=== PATIENT | male | born 1990 | race African-American/Black ===

== ENCOUNTER 2025-08-29 09:19 | Emergency (ER) | payer MEDICAID, OTHER ==
[~2025-08-29] VITALS: Ht 188 cm; Wt 164.5 kg
[2025-08-29 09:27] VITALS: BP 162/104; PULSE 76; RESP 18; TEMP 97.8; O2SAT 97
--- NOTE | 2025-08-29 10:22 | ED.PDOC ---
HPI (NEURO) HPI Comments 35 year-old male presents to the ED with a chief complaint of R facial numbness for X1 week. Patient reports a Hx of Trigeminal Neuropathy as of January 2025. Patient reports taking Gabapentin 300mg daily, with no relief. Patient has no further complaints at this time and otherwise denies symptoms of weakness, dizziness, chest pain, headache, or N/V/D. Chief Complaint: Face pain Time Seen by MD: 10:15 Reviewed Notes: Medications, Allergies Information Source: Patient Mode of Arrival: Ambulatory Severity: Moderate Timing: Weeks Duration: Since onset Weakness Location: (R) Sided, Facial Associated Signs and Symptoms: Numbness Past Medical History PAST MEDICAL HISTORY: Anxiety, HTN Past Medical History (Other): Trigeminal Neuralgia Surgical History: Denies all surgeries Surgical History (Other): Lumbar Puncture Family History Family History: Unknown Social History Smoker: Non-Smoker Alcohol: Denies ETOH Use Drugs: Denies Drug Use Lives In: Home Constitutional: denies: chills, diaphoresis, fatigue, fever, malaise, sweats, weakness, others EENTM: denies: blurred vision, double vision, ear bleeding, ear discharge, ear drainage, ear pain, ear ringing, eye pain, eye redness, hearing loss, mouth pain, mouth swelling, nasal discharge, nose bleeding, nose congestion, nose pain, photophobia, tearing, throat pain, throat swelling, voice changes, others Respiratory: denies: cough, hemoptysis, orthopnea, SOB at rest, shortness of breath, SOB with excertion, stridor, wheezing, others Cardiovascular: denies: chest pain, dizzy spells, diaphoresis, Dyspnea on exertion, edema, irregular heart beat, left arm pain, lightheadedness, palpitations, PND, syncope, others Gastrointestinal: denies: abdomen distended, abdominal pain, blood streaked bowels, constipated, diarrhea, dysphagia, difficulty swallowing, hematemesis, melena, nausea, poor appetite, poor fluid intake, rectal bleeding, rectal pain, vomiting, others Genitourinary: denies: burning, dysuria, flank pain, frequency, hematuria, incontinence, penile discharge, penile sore, pain, testicle pain, testicle swelling, urgency, others Neurological: reports: numbness (R sided facial ); denies: dizziness, fainting, headache, left sided numbness, left sided weakness, paresthesia, pre-existing deficit, right sided numbness, right sided weakness, seizure, speech problems, tingling, tremors, weakness, others Musculoskeletal: denies: back pain, gout, joint pain, joint swelling, muscle pain, muscle stiffness, neck pain, others Integumetry: denies: bruises, change in color, change in hair/nails, dryness, laceration, lesions, lumps, rash, wounds, others Allergic/Immunocompromised: denies: Difficulty Healing, Frequent Infections, Hives, Itching, others Hematologic/Lymphatic: denies: anemia, blood clots, easy bleeding, easy bruising, swollen glands, others Endocrine: denies: excessive hunger, excessive sweating, excessive thirst, excessive urination, flushing, intolerance to cold, intolerance to heat, unexplained weight gain, unexplained weight loss, others Psychiatric: denies: anxiety, bipolar disorder, depression, hopeless, panic disorder, schizophrenia, sleepless, suicidal, others All Other Systems: Reviewed and Negative Physical Exam General Appearance: Moderate Distress, Obese HEENT: Normal ENT Inspection, PERRL/EOMI, Pharynx Normal, TMs Normal, Other (Facial pain neuralgia) Neck: Full Range of Motion, Non-Tender, Normal, Normal Inspection Respiratory: Chest Non-Tender, Lungs Clear, No Accessory Muscle Use, No Respiratory Distress, Normal Breath Sounds Cardiovascular: No Edema, No JVD, No Murmur, No Gallop, Normal Peripheral Pulses, Regular Rate/Rhythm Breast Exam: Deferred Gastrointestinal: No Organomegaly, Non Tender, No Pulsatile Mass, Normal Bowel Sounds, Soft Genitalia: Deferred Pelvic: Deferred Rectal: Deferred Extremities: No calf tenderness, Normal capillary refill, Normal inspection, Normal range of motion, Non-tender, No pedal edema Neurologic: Alert, 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 Was a procedure done?: No Differential Diagnosis (SZ) Seizure: N/A CVA: Armas's Palsy General Weakness: Other (Trigeminal Neuropathy) Headache: Migraine, Sinusitis X-Ray, Labs, Meds, VS Vital Signs Date Time Temp Pulse Resp B/P (MAP) Pulse Ox O2 Delivery O2 Flow Rate FiO2 08/29/25 09:27 97.8 76 18 162/104 97 97.8 Current Medications Medications (Trade) Dose Ordered Sig/Lelo Route Start Time Stop Time Status Last Admin Carbamazepine (TEGretol TABLET) 200 mg ONCE ONCE PO 08/29/25 10:30 08/29/25 10:31 DC 08/29/25 10:29 X-Ray, Labs, Meds, VS Comment Course in the [facility] the patient came with a exacerbation of his trigeminal neuralgia and these medication gabapentin is not helping Patient was prescribed Tegretol 200 mg p.o. in the [facility] and we will discharged home with a prescription for Tegretol twice a day Time of 1ST Reevaluation: 10:59 Reevaluation 1ST: Unchanged Time of 2ND Reevaluation: 10:43 Reevaluation 2ND: Improved Consultation: PCP, Neurology Patient Education/Counseling: Diagnosis, Treatment, Prognosis, Need For Follow Up Family Education/Counseling: Diagnosis, Treatment, Prognosis, Need For Follow Up, No Family Present Departure 1 Departure Time of Disposition: 10:43 Impression: Primary Impression: Trigeminal neuralgia of right side of face Disposition: 01 HOME / SELF CARE / HOMELESS Condition: Fair Additional Instructions: Local heat and follow up with your neurologist e-Prescriptions Carbamazepine (Tegretol) 200 Mg Tab 200 MG PO BID for 10 Days, #20 TAB Prov: LEO BAR MD 08/29/25 Discharged With: Self Critical Care Note Critical Care Time?: No Stability Stability form required: No Heart Score Heart Score: Heart Score Response (Comments) Value History N/A 0 EKG N/A 0 Age <45 0 Risk Factors No known risk factors 0 Troponin N/A 0 Total 0 I personally scribed for LEO BAR MD ([email or web address]) on 08/29/25 at 10:22. Electronically submitted by Olive Pearson ([employer]). I personally scribed for LEO BAR MD ([email or web address]) on 08/29/25 at 10:35. Electronically submitted by Olive Pearson ([employer]). I personally scribed for LEO BAR MD ([email or web address]) on 08/29/25 at 10:36. Electronically submitted by Olive Pearson ([employer]). LEO BAR MD Aug 29, 2025 10:22
[2025-08-29] MEDS: carBAMazepine 200 MG TAB PO ONE (10:29)
[2025-08-29] MEDS ORDERED: CARB200T PO (10:45)
== END 2025-08-29 10:59 | disposition home or self-care (01) ==
LOC: ER 09:19
DX: G50.0 Trigeminal neuralgia (principal); I10 Essential (primary) hypertension; Z79.899 Other long term (current) drug therapy